=== PATIENT | male | born 1970 | race African-American/Black ===

== ENCOUNTER 2017-12-12 06:19 | Day surgery (SDC) | payer BC ==
[2017-12-11 13:24] LABS: Absolute Lymphocytes (CBC) 1.9 K/uL (0.7-4.9); Absolute Monocytes 0.5 K/uL (0.1-1.3); Absolute Neutrophil 2.2 K/uL (1.8-8.0); Basophils % 0.9 % (0-1.3); Eosinophils % 3.3 % (0-4.4); Hematocrit 43.6 % (39.6-49.0); Lymphocytes % 39.5 % (15.3-44.8); MCV 87.6 fL (80-100); MPV 8.4 fL (7.6-11.3); Monocytes % 11.3 % (3.3-12.3); RBC Red Blood Cell Count 4.97 M/uL (4.33-5.43)
[2017-12-11 13:41] LABS: Potassium 3.9 mEq/L (3.6-5.0)
--- NOTE | 2017-12-11 13:42 | RAD REPORT ---
EXAM DESCRIPTION: RAD - Chest Pa And Lat (2 Views) - 12/11/2017 1:17 pm CLINICAL HISTORY: Preop chest, pending cholecystectomy, smoking history COMPARISON: None. TECHNIQUE: PA and lateral views of the chest were obtained. FINDINGS: The lungs are clear of a focal mass, infiltrate or failure finding. Interstitial markings are mildly prominent with no comparison available. Mild chronic interstitial lung disease suspected. Heart size is normal and central vasculature is within normal limits. No pleural effusion or pneumo thorax seen. No acute bony finding noted. No aortic abnormality. IMPRESSION: Baseline study shows evidence for mild chronic interstitial lung disease. No failure, infiltrate or mass lesion identified.
[2017-12-11 13:47] LABS: Albumin 4.1 g/dL (3.2-5.5); Bilirubin Direct 0.1 mg/dL (0-0.2); Bilirubin Total 0.9 mg/dL (0.3-1.2); Protein, Total 7.6 g/dL (6.0-8.3)
--- NOTE | 2017-12-11 15:00 | EKG ---
Test Date: 2017-12-11 Test Time: 12:42:45 Research Recruiter: ASHELY MEASUREMENT RESULTS: Intervals: Rate: 69 [place]: 162 QRSD: 94 QT: 376 QTc: 402 [place]: P: 71 AZ: 162 QRS: -5 T: 63 INTERPRETIVE STATEMENTS: Normal sinus rhythm with sinus arrhythmia Early repolarization Normal ECG No previous ECG available for comparison Electronically Signed On 12-11-17 14:58:56 CDT by Juan Jose Hall
[2017-12-12] MEDS ORDERED: Ringers Lactate 1,000 ML IV ONE (06:58)
[2017-12-12] MEDS ORDERED: CIPROFLOXACIN 400mg IV 400 MG/200 ML BAG IV ONE (06:59)
[2017-12-12] MEDS ORDERED: BUPIVACAINE 0.5% Inj,MDV 50 mL VIAL ONE (07:01)
[2017-12-12] MEDS ORDERED: ROCURONIUM 50 MG/5 ML VIAL IV ONE (07:18)
[2017-12-12] MEDS ORDERED: PROPOFOL 200 MG/20 ML VIAL IV ONE (07:18)
[2017-12-12] MEDS ORDERED: MIDAZOLAM HCL 2 MG/2 ML INJ ONE ×2 (07:18→07:38)
[2017-12-12] MEDS ORDERED: FENTANYL CITR 100 MCG/2 ML ONE ×2 (07:18→07:46)
[2017-12-12] MEDS ORDERED: KETOROLAC 30 MG/ML INJ ONE (07:57)
[2017-12-12] MEDS ORDERED: GLYCOPYRROLATE 0.2 MG/ML SYR ONE ×2 (07:57→07:58)
[2017-12-12] MEDS ORDERED: ONDANSETRON 4 MG/2 ML VIAL ONE (07:58)
[2017-12-12] MEDS ORDERED: NEOSTIGMINE 1 MG/ML -5 ML SYRINGE ONE (07:59)
--- NOTE | 2017-12-12 08:52 | P.BOP ---
Preoperative diagnosis: symptomatic cholelithiasis Postoperative diagnosis: same Primary procedure: Laparoscopic cholecystectomy Ointment Mill Tender: YULISA ROMERO Estimated blood loss: <10cc Specimen: gb Findings: as above Anesthesia: General Complications: None Drain(s): Other Transferred to: Recovery Room Condition: Good
[2017-12-12] MEDS: MEPERIDINE HCL 50 MG/ML AMP ONE ×3 (09:00→09:14)
[2017-12-12] MEDS ORDERED: HYDROCODONE/APAP 5/325 MG TAB ONE (09:59)
--- NOTE | 2017-12-12 17:40 | OP ---
Date of Procedure: 12/12/2017 Surgeon: Ta Foley MD Drug Safety Assistant: CELESTINO Miller Preoperative Diagnosis: Symptomatic cholelithiasis. Postoperative Diagnosis: Symptomatic cholelithiasis. Procedure: Laparoscopic cholecystectomy. Estimated Blood Loss: Less than 10 cc. Specimen: Gallbladder. Anesthesia: General plus local. Indications: This is a case of a 47-year-old patient with above diagnosis. Fully explained the bene fits, alternatives, and risks of laparoscopic, possible open cholecystectomy, which include, but not limited to infection, bleeding, damage to adjacent structures, anesthesia complication, choledocholit hiasis, bile leak, pancreatitis, GA, and even . He also understands this may not relieve any sy mptoms. He might need more than one surgical intervention. He understood. Signed consent. Description Of Procedure: The patient was brought to the operating room, placed in supine position. Anesthesia was done without complication. Abdominal area was prepped and draped in a sterile fashio n. Marcaine 0.5% was injected for local anesthetic, followed by sharp incision of the skin in the pe riumbilical region. Incision was carried down to fascia, which was opened under direct vision. Elba toneum was encountered, opened under direct vision. Vicryl #1 placed inside the fascia. Charline troc ar was carefully introduced. No bleeding was obtained. I placed 3 more trocars, 5 mm each one of th em under direct visualization in the right upper quadrant. I put a grasper in the fundus of the gall bladder, another grasper in the infundibulum, and retracted gallbladder in the inferolateral fashion exposing the triangle of Calot obtaining critical view of safety. The cystic duct and cystic artery were clearly isolated circumferentially and a connection between those and the gallbladder was clearl y visualized. We proceeded to ligate those by using at least 3 clips proximal, 1 clip distal, and li gation in middle. Same was done with the cystic artery. No bile leak. No bleeding. The gallbladde r was removed from liver using Bovie cauterizer and removed from abdominal cavity using an EndoCatch through the umbilical incision. The area was inspected once again. No bile leak. No bleeding. At that moment, I proceeded to remove the trocars under direct vision. Deflated pneumoperitoneum. Clos ed the fascia with #1 Vicryl. Irrigated the subcutaneous tissue, closed that with 3-0 chromic, and t hen the skin in subcuticular fashion with 3-0 chromic and Steri-Strips on top. Sponge count and inst rument counts were correct. The patient tolerated the procedure well. The patient was sent to [facility] in stable condition. NIA/LINDA Voice ID: [id number] Report ID: [id number]
--- NOTE | 2017-12-12 17:40 | DS ---
Date of Discharge: 12/12/2017 Diagnosis: Symptomatic cholelithiasis with acute cholecystitis. Procedure: Laparoscopic cholecystectomy. Disposition: Home. Activity: As tolerated. No heavy lifting. Followup: Follow up in my office in 1 week. Call for appointment [phone]. Discharge Instructions: Keep area dry for 48 hours, then may shower. Keep Steri-Strips intact. Medications: Include Bactrim DS p.o. b.i.d. and Vicodin q.4 hours p.r.n. pain. The patient instructed not to use his normal Ultracet with his Vicodin at the same time. Not to use it. The patient understood. NIA/LINDA Voice ID: [id number] Report ID: [id number]
== END 2017-12-12 10:50 | disposition home or self-care (01) ==
LOC: OR 06:19
PROVIDERS: ATTEND Surgery
PROC: 0FT44ZZ Resection of Gallbladder, Percutaneous Endoscopic Approach (ICD-10-PCS; principal; 2017-12-12 07:30)
DX: K80.10 Calculus of gallbladder with chronic cholecystitis without obstruction (principal); I10 Essential (primary) hypertension; K21.9 Gastro-esophageal reflux disease without esophagitis; F17.210 Nicotine dependence, cigarettes, uncomplicated; Z88.0 Allergy status to penicillin
CPT/HCPCS: 36415; 71046; 80048; 80076; 82150; 83690; 85025; 88304; 93005; J0744; J2175; J2250; J2405; J2710; J3010

== ENCOUNTER 2020-01-04 12:34 | Emergency (ER) | payer BC, SELFPAY ==
[2020-01-04] MEDS ORDERED: HYDROCODONE/APAP 5/325 MG TAB ONE (14:09)
--- NOTE | 2020-01-04 14:12 | RAD REPORT ---
EXAM DESCRIPTION: RAD - Foot Left 3 View - 01/04/2020 1:47 pm CLINICAL HISTORY: Left Foot pain FINDINGS: A mildly displaced fracture involves the mid to distal fifth metatarsal. No dislocation
--- NOTE | 2020-01-04 14:28 | ER ---
Nurse's Notes [facility] Name: Hans Winters Age: 49 yrs Sex: Male : 1970 Arrival Date: 01/04/2020 Time: 12:37 Bed 14 Private MD: Diagnosis: Displaced fracture of fifth metatarsal bone, left foot Presentation: 01/03 13:17 Chief complaint: Patient states: Left lateral foot pain since Sunday night. States he ll1 stepped down the stairs the wrong way. Pain since. Coronavirus screen: Proceed with normal triage. Patient denies a cough. Patient denies shortness of breath or difficulty breathing. Patient denies measured and/or subjective temperature greater than 100.4F prior to today's visit. Patient denies travel on a cruise ship or to a country the [facility] currently lists as an affected area. Patient denies contact with known and/or suspected case of COVID-19. Ebola Screen: Patient denies travel to an Ebola-affected area in the 21 days before illness onset. Initial Sepsis Screen: Does the patient meet any 2 criteria? No. Patient's initial sepsis screen is negative. Risk Assessment: Do you want to hurt yourself or someone else? Patient reports no desire to harm self or others. Onset of symptoms was January 02, 2020. 13:17 Method Of Arrival: Ambulatory ll1 13:17 Acuity: NORMA 4 ll1 13:37 Initial Sepsis Screen: Does the patient have a suspected source of infection? No. ll1 Patient's initial sepsis screen is negative. Historical: - Allergies: 13:18 PENICILLINS; ll1 - PMHx: 13:18 Hypertension; ll1 - PSHx: 13:18 Cholecystectomy; ll1 - Immunization history:: Adult Immunizations up to date. - Social history:: Smoking status: Patient reports the use of cigarette tobacco products, smokes one-half pack cigarettes per day, Patient uses street drugs, marijuana. Screenin:36 Abuse screen: Denies threats or abuse. Nutritional screening: No deficits noted. ll1 Tuberculosis screening: No symptoms or risk factors identified. Fall Risk None identified. Total Crisostomo Fall Scale indicates No Risk (0-24 pts). Assessment: 13:36 General: Appears in no apparent distress. Behavior is calm, cooperative, appropriate ll1 for age. Pain: Complains of pain in l foot Quality of pain is described as aching, Pain began 2-3 days ago. Is intermittent. Neuro: No deficits noted. Cardiovascular: No deficits noted. Respiratory: No deficits noted. Musculoskeletal: Circulation, motion, and sensation intact. Capillary refill < 3 seconds, Tenderness present in left lateral foot Reports pain in left lateral foot. Injury Description: Bruise. Vital Signs: 13:17 BP 121 / 82; Pulse 69; Resp 17; Temp 98.5; Pulse Ox 96% ; Pain 8/10; ll1 ED Course: 12:37 Patient arrived in ED. as 13:15 Suzanne Andino, RN is Primary Nurse. ll1 13:17 Keren Davis FNP-C [facility]. snw 13:17 Maldonado Ring MD is Attending Physician. snw 13:18 Triage completed. ll1 13:18 Arm band placed on. ll1 13:37 Patient has correct armband on for positive identification. Bed in low position. Call ll1 light in reach. Side rails up X 1. 13:47 Foot Left 3 View XRAY In Process Unspecified. EDMS 14:19 Crutch training done. Orthoglass splint: Posterior short lleg splint applied on left jp3 leg. Patient maintains SpO2 saturation greater than 95% on room air. 14:26 Tha Betancur MD is Referral Physician. snw 14:50 No provider procedures requiring assistance completed. Patient did not have IV access ll1 during this emergency room visit. Administered Medications: 14:03 Drug: [place] 5 mg-325 mg 1 tabs Route: PO; ll1 14:51 Follow up: Response: No adverse reaction; Pain is decreased; RASS: Alert and Calm (0) ll1 Outcome: 14:27 Discharge ordered by . snw 14:49 Patient left the ED. ll1 14:50 Discharged to home ambulatory. ll1 14:50 Condition: stable 14:50 Discharge instructions given to patient, Instructed on discharge instructions, follow up and referral plans. medication usage, crutch walking, Demonstrated understanding of instructions, follow-up care, medications, crutch walking, splint care, Prescriptions given X 2. Signatures: Dispatcher [employer] EDMS Keren Davis FNP-C PLATE MOUNTER-Csnw Aarti Foley Jacob jp3 Suzanne Andino, RN RN ll1
--- NOTE | 2020-01-04 14:28 | EDPHYS ---
Physician Documentation [facility] Name: Hans Winters Age: 49 yrs Sex: Male : 1970 Arrival Date: 01/04/2020 Time: 12:37 Bed 14 Private MD: ED Physician Maldonado Ring HPI: 01/03 14:23 This 49 yrs old Black Male presents to ER via Ambulatory with complaints of Foot Pain. snw 14:23 The patient presents with decreased range of motion, an injury, pain, that is acute. snw The complaints affect the lateral aspect of left foot. Context: resulted from a mis-step, last of a series of stairs, the patient can partially bear weight, the patient is able to ambulate, with moderate difficulty, Problem is a result from a previous injury: No. Onset: The symptoms/episode began/occurred suddenly, 3 day(s) ago, and became persistent. Treatment prior to arrival includes: no previous treatment. Severity of symptoms: At their worst the symptoms were moderate. The patient has not experienced similar symptoms in the past. It is unknown whether or not the patient has recently seen a physician. Historical: - Allergies: 13:18 PENICILLINS; ll1 - PMHx: 13:18 Hypertension; ll1 - PSHx: 13:18 Cholecystectomy; ll1 - Immunization history:: Adult Immunizations up to date. - Social history:: Smoking status: Patient reports the use of cigarette tobacco products, smokes one-half pack cigarettes per day, Patient uses street drugs, marijuana. ROS: 14:23 Constitutional: Negative for fever, chills, and weight loss, Eyes: Negative for injury, snw pain, redness, and discharge, ENT: Negative for injury, pain, and discharge, Neck: Negative for injury, pain, and swelling, Cardiovascular: Negative for chest pain, palpitations, and edema, Respiratory: Negative for shortness of breath, cough, wheezing, and pleuritic chest pain, Abdomen/GI: Negative for abdominal pain, nausea, vomiting, diarrhea, and constipation, Back: Negative for injury and pain, : Negative for injury, bleeding, discharge, and swelling, Skin: Negative for injury, rash, and discoloration, Neuro: Negative for headache, weakness, numbness, tingling, and seizure, Psych: Negative for depression, anxiety, suicide ideation, homicidal ideation, and hallucinations. 14:23 MS/extremity: Positive for injury or acute deformity, decreased range of motion, ecchymosis, pain, swelling, of the lateral side of left foot. Exam: 14:19 Constitutional: This is a well developed, well nourished patient who is awake, alert, snw and in no acute distress. Head/Face: Normocephalic, atraumatic. Eyes: Pupils equal round and reactive to light, extra-ocular motions intact. Lids and lashes normal. Conjunctiva and sclera are non-icteric and not injected. Cornea within normal limits. Periorbital areas with no swelling, redness, or edema. ENT: Nares patent. No nasal discharge, no septal abnormalities noted. Tympanic membranes are normal and external auditory canals are clear. Oropharynx with no redness, swelling, or masses, exudates, or evidence of obstruction, uvula midline. Mucous membranes moist. Neck: Trachea midline, no thyromegaly or masses palpated, and no cervical lymphadenopathy. Supple, full range of motion without nuchal rigidity, or vertebral point tenderness. No Meningismus. Chest/axilla: Normal chest wall appearance and motion. Nontender with no deformity. No lesions are appreciated. Cardiovascular: Regular rate and rhythm with a normal S1 and S2. No gallops, murmurs, or rubs. Normal PMI, no JVD. No pulse deficits. Respiratory: Lungs have equal breath sounds bilaterally, clear to auscultation and percussion. No rales, rhonchi or wheezes noted. No increased work of breathing, no retractions or nasal flaring. Abdomen/GI: Soft, non-tender, with normal bowel sounds. No distension or tympany. No guarding or rebound. No evidence of tenderness throughout. Back: No spinal tenderness. No costovertebral tenderness. Full range of motion. Skin: Warm, dry with normal turgor. Normal color with no rashes, no lesions, and no evidence of cellulitis. Neuro: Awake and alert, GCS 15, oriented to person, place, time, and situation. Cranial nerves II-XII grossly intact. Motor strength 5/5 in all extremities. Sensory grossly intact. Cerebellar exam normal. Normal gait. Psych: Awake, alert, with orientation to person, place and time. Behavior, mood, and affect are within normal limits. 14:19 Musculoskeletal/extremity: Extremities: grossly normal except: noted in the lateral side of left foot: decreased ROM, ecchymosis, tenderness, ROM: limited active range of motion due to pain, Circulation is intact in all extremities. Sensation intact. Compartment Syndrome exam of affected extremity: is normal. Weight bearing: can bear weight with assistance only. Vital Signs: 13:17 BP 121 / 82; Pulse 69; Resp 17; Temp 98.5; Pulse Ox 96% ; Pain 8/10; ll1 MDM: 13:18 Patient medically screened. snw 14:31 Data reviewed: vital signs, nurses notes. Data interpreted: Pulse oximetry: on room air snw is 96 %. Interpretation: acceptable. Counseling: I had a detailed discussion with the patient and/or guardian regarding: the historical points, exam findings, and any diagnostic results supporting the discharge/admit diagnosis, the presence of at least one elevated blood pressure reading (>120/80) during this emergency department visit, lab results, the need for outpatient follow up, to return to the emergency department if symptoms worsen or persist or if there are any questions or concerns that arise at home. Special discussion: I have referred the patient to see his PCP for further evaluation of high blood pressure. Based on the history and exam findings, there is no indication for further emergent testing or inpatient evaluation. I discussed with the patient/guardian the need to see the orthopedic surgeon for further evaluation of the symptoms. I discussed with the patient/guardian the need to see the end user support specialist for further evaluation of the symptoms. I discussed with the patient/guardian the need to see the primary care provider for further evaluation of the symptoms. 01/03 13:18 Order name: Foot Left 3 View XRAY; Complete Time: 14:18 snw 01/03 13:47 Order name: Posterior Orthoglass Ankle Splint; Complete Time: 14:19 snw 01/03 14:18 Order name: Crutches; Complete Time: 14:19 snw 01/03 14:18 Order name: Crutch Training; Complete Time: 14:19 snw Administered Medications: 14:03 Drug: [place] 5 mg-325 mg 1 tabs Route: PO; ll1 14:51 Follow up: Response: No adverse reaction; Pain is decreased; RASS: Alert and Calm (0) ll1 Disposition: 19:13 Co-signature as Attending Physician, Maldonado Ring MD. ma2 Disposition: 01/04/20 14:27 Discharged to Home. Impression: Displaced fracture of fifth metatarsal bone, left foot. - Condition is Stable. - Discharge Instructions: Cast or Splint Care, Adult, Crutch Use, Metatarsal Fracture, RICE for Routine Care of Injuries. - Prescriptions for Mobic 7.5 mg Oral Tablet - take 1 tablet by ORAL route 2 times per day take with food; 20 tablet. orphenadrine citrate 100 mg Oral Tablet Sustained Release - take 1 tablet by ORAL route 2 times per day As needed; 20 tablet. - Work release form, Medication Reconciliation Form, Thank You Letter, Antibiotic Education, Prescription Opioid Use form. - Follow up: Tha Betancur MD; When: 2 - 3 days; Reason: Recheck today's complaints, Continuance of care. Signatures: Dispatcher [employer] EDMS Keren Davis, NICK-C REED REPAIRER-Csnw Maldonado Ring MD MD ma2 Suzanne Andino RN RN ll1 Corrections: (The following items were deleted from the chart) 14:49 14:27 01/04/2020 14:27 Discharged to Home. Impression: Displaced fracture of fifth ll1 metatarsal bone, left foot. Condition is Stable. Forms are Medication Reconciliation Form, Thank You Letter, Antibiotic Education, Prescription Opioid Use. Follow up: Tha Betancur; When: 2 - 3 days; Reason: Recheck today's complaints, Continuance of care. snw
[2020-01-04 15:00] VITALS: BP 121/82; TEMP 98.5; O2SAT 96
== END 2020-01-04 14:49 | disposition home or self-care (01) ==
LOC: ER 12:34
PROC: 2W3RX1Z Immobilization of Left Lower Leg using Splint (ICD-10-PCS; principal; 2020-01-04)
DX: S92.352A Displaced fracture of fifth metatarsal bone, left foot, initial encounter for closed fracture (principal); X58.XXXA Exposure to other specified factors, initial encounter; Y93.89 Activity, other specified; Y92.9 Unspecified place or not applicable; I10 Essential (primary) hypertension; Z88.0 Allergy status to penicillin; F17.210 Nicotine dependence, cigarettes, uncomplicated
CPT/HCPCS: 99284

== ENCOUNTER 2021-09-09 18:31 | Emergency (ER) | payer SELFPAY ==
--- OUTSIDE RECORDS SUMMARY | 2021-09-09 18:34 | XMS REPORT | Continuity of Care Document ---
:1970 Author Organization [facility] t Address [address] [place] [address] Care Team Providers Name Role Phone Wright Attending Clinician Unavailable Cherry CORTES, L Attending Clinician Heavenly BELTRAN Attending Clinician Unavailable Ruby NGUYEN S Attending Clinician Charles LINARES Attending Clinician Unavailable Doctor Unassigned, Name Attending Clinician Unavailable Problems This patient has no known problems. Allergies, Adverse Reactions, Alerts Allergy Allergy Status Severity Reaction(s) Onset Inactive Treating Comm ents Source Name Type Date Date Clinician Penicill Propensi Active Unknown - Uni vers in ty to See comments 01-07 ity of adverse 00:00: [place] reaction 00 Medical s Branch PENICILL DRUG Active Unknown-Cmnt Un [place] IN INGREDI 01-07 ity of 00:00: [place] 00 Medical Branch NO KNOWN Drug Active Univers ALLERGIE Class ity of S [facility] Social History Social Habit Start Date Stop Date Quantity Comments Source Sex Assigned At Uni versity of [facility] Exposure to SARS-CoV-2 Not sure Un [facility]ity of [place] (event) Medical [place] Smoking Status Start Date Stop Date Source Current every day smoker 2020-01-08 00:00:00 Uni versity of [place] [facility] Medications Ordered Filled Start Stop Current Ordering Indication Dosage Frequency Signature Comments Components Source Medication Medication Date Date Medication? Clinician (SIG) Name Name amlodipine 2020-0 Yes Take by Uni vers bes/olmesar 6-25 mouth. ity of [place] med 18:56: [place] (AMLODIPINE 25 Medical -OLMESARTAN Branch ORAL) amlodipine 2020-0 Yes Take by Uni vers bes/olmesar 6-25 mouth. ity of [place] 18:56: [place] (AMLODIPINE 25 Medical -OLMESARTAN Branch ORAL) amlodipine 2020-0 Yes Take by Uni vers bes/olmesar 6-25 mouth. ity of [place] [facility] 18:56: [place] (AMLODIPINE 25 Medical -OLMESARTAN Branch ORAL) amlodipine 2020-0 Yes Take by Uni vers bes/olmesar 6-25 mouth. ity of [place] [facility] 18:56: [place] (AMLODIPINE 25 Medical -OLMESARTAN Branch ORAL) amlodipine 2020-0 Yes Take by Uni vers bes/olmesar 6-25 mouth. ity of [place] 18:56: [place] (AMLODIPINE 25 Medical -OLMESARTAN Branch ORAL) amlodipine 2020-0 Yes Take by Uni vers bes/olmesar 6-25 mouth. ity of [place] 18:56: [place] (AMLODIPINE 25 Medical -OLMESARTAN Branch ORAL) amlodipine 2020-0 Yes Take by Uni vers bes/olmesar 6-25 mouth. ity of [place] 18:56: [place] (AMLODIPINE 25 Medical -OLMESARTAN Branch ORAL) amlodipine 2020-0 Yes Take by Uni vers bes/olmesar 6-25 mouth. ity of [place] 18:56: [place] (AMLODIPINE 25 Medical -OLMESARTAN Branch ORAL) acetaminoph 2020-0 Yes [id number] 1{tbl} Take 1 Univers en-codeine 6-25 tablet by ity of (TYLENOL-CO 00:00: mouth [place] DEINE #3) 00 every 4 Medical 300-30 mg (four) Branch tablet hours as needed for Pain (scale 4-6) or Pain (scale 7-10). acetaminoph 2020-0 Yes [id number] 1{tbl} Take 1 Univers en-codeine 6-25 tablet by ity of (TYLENOL-CO 00:00: mouth [place] DEINE #3) 00 every 4 Medical 300-30 mg (four) Branch tablet hours as needed for Pain (scale 4-6) or Pain (scale 7-10). acetaminoph 2020-0 Yes [id number] 1{tbl} Take 1 Univers en-codeine 6-25 tablet by ity of (TYLENOL-CO 00:00: mouth [place] DEINE #3) 00 every 4 Medical 300-30 mg (four) Branch tablet hours as needed for Pain (scale 4-6) or Pain (scale 7-10). acetaminoph 2020-0 Yes [id number] 1{tbl} Take 1 Univers en-codeine 6-25 tablet by ity of (TYLENOL-CO 00:00: mouth [place] DEINE #3) 00 every 4 Medical 300-30 mg (four) Branch tablet hours as needed for Pain (scale 4-6) or Pain (scale 7-10). acetaminoph 2020-0 Yes [id number] 1{tbl} Take 1 Univers en-codeine 6-25 tablet by ity of (TYLENOL-CO 00:00: mouth [place] DEINE #3) 00 every 4 Medical 300-30 mg (four) Branch tablet hours as needed for Pain (scale 4-6) or Pain (scale 7-10). acetaminoph 2020-0 Yes [id number] 1{tbl} Take 1 Univers en-codeine 6-25 tablet by ity of (TYLENOL-CO 00:00: mouth [place] DEINE #3) 00 every 4 Medical 300-30 mg (four) Branch tablet hours as needed for Pain (scale 4-6) or Pain (scale 7-10). acetaminoph 2020-0 Yes [id number] 1{tbl} Take 1 Univers en-codeine 6-25 tablet by ity of (TYLENOL-CO 00:00: mouth [place] DEINE #3) 00 every 4 Medical 300-30 mg (four) Branch tablet hours as needed for Pain (scale 4-6) or Pain (scale 7-10). acetaminoph 2020-0 Yes [id number] 1{tbl} Take 1 Univers en-codeine 6-25 tablet by ity of (TYLENOL-CO 00:00: mouth [place] DEINE #3) 00 every 4 Medical 300-30 mg (four) Branch tablet hours as needed for Pain (scale 4-6) or Pain (scale 7-10). Vital Signs Vital Name Observation Time Observation Value Comments Source Systolic blood 2020-02-11 19:25:00 121 mm[Hg[facility]astolic blood 2020-02-11 19:25:00 70 mm[Hg] Unive [facility] Respiratory rate 2020-02-11 19:25:00 18 /min Univ [facility] Body height 2020-02-11 19:25:00 185.4 cm [facility] Body weight 2020-02-11 19:25:00 95.255 kg [facility] BMI 2020-02-11 19:25:00 27.71 kg/m2 [facility] Diastolic blood 2020-01-08 18:54:00 75 mm[Hg] Unive [facility] Heart rate 2020-01-08 18:54:00 62 /min [facility] Body height 2020-01-08 18:54:00 185.4 cm [facility] Body weight 2020-01-08 18:54:00 95.255 kg [facility] BMI 2020-01-08 18:54:00 27.71 kg/m2 [facility] Systolic blood 2020-01-08 18:54:00 124 mm[Hg] [facility] Procedures Procedure Date / Time Performed Performing Clinician Sourc e XR FOOT 3+ VW LEFT 2020-02-11 18:51:10 Ashia Linares [facility] NOTICE OF PRIVACY 2020-02-11 18:23:30 Doctor Unassigned, No Univ [facility] PRACTICES [facility] CONSENT/REFUSAL FOR 2020-02-11 18:23:12 [facility] TREATMENT ASSIGNMENT OF BENEFITS 2020-02-11 18:22:58 Doctor Unassigned, No [facility] Encounters Start End Encounter Admission Attending Care Care Encounter Source Date/Time Date/Time Type Type Clinicians Facility Department ID 2021-08-10 Outpatient Kyle, STLMLC [facility] [id number] [facility] 14:00:31 Avnee [id number] [facility] 2021-08-10 Outpatient Wright, STLC [facility] [id number] [facility] 13:47:20 [place] [id number] [facility] 2021-08-10 Outpatient Wright, STLC [facility] [id number] 13:08:10 Avnee [id number] [facility] 2021-08-08 2021-08-08 ambulatory STLC [facility] [id number] [facility] 2021-04-01 2021-04-01 [facility] [id number] 2020-12-09 2020-12-09 [facility] [id number] 2020-02-11 2020-02-11 [facility] [id number] Univers 13:23:00 23:59:00 Encounter Ashia Soto Meally [id number] ity [facility] [id number] [facility] [id number] [facility] [address] [place] 2020-02-11 2020-02-11 [facility] [id number] Univers 14:45:00 14:45:00 [facility] [id number] [facility]11 2020-02-11 [facility] [id number] Univers 14:45:00 14:45:00 [facility] 2020-02-11 2020-02-11 Office [facility] [id number] Univers 14:24:20 14:39:20 Visit [facility] [id number] it y of [facility] [id number] [facility] [id number] [place] dical es 198 [facility] 2020-02-11 2020-02-11 [facility] [id number] Univers 00:00:00 00:00:00 ASHIA ity of [facility] 2020-02-11 2020-02-11 Telephone Cherry MIRANDY [id number] Univers 00:00:00 00:00:00 Ashia Soto [facility] [id number] it y of Surgical [id number] Bert as Specialti [phone] Me dical es 198 [facility] 2020-02-11 2020-02-11 Orders Doctor DARREL [id number] Univers 00:00:00 00:00:00 Only Unassigned, GIANNA [id number] ity of [facility] [id number] Bert as [id number] [address] 2020-02-11 2020-02-11 Letter Ruby [facility] [id number] Univers 00:00:00 00:00:00 (Out) Teresa [facility] [id number] it y of Surgical [id number] Bert as Specialti [id number] [place] dical es 198 [facility] 2020-01-08 2020-01-08 [facility] [id number] Univers 14:15:00 14:15:00 ASHIA [id number] max [facility] 2020-01-08 2020-01-08 Outpatient R CHERRY [facility] [id number] Univers 14:15:00 14:15:00 ASHIA santana [facility] 2020-01-08 2020-01-08 Office Teresa Beltran [facility] [id number] Univers 13:47:34 14:02:34 Visit Ashia Linares [employer] [id number] ity of Surgical [id number] Bert as Specialti [id number] [place] dical es 198 [facility] Results Test Description Test Time Test Comments Results Result Sour e Comments XR FOOT 3+ VW 2020-01-15 HISTORY: Fifth Univers ity of LEFT 9 metatarsal fracture. [facility] 18:54:37 FINDINGS: AP, Branch lateral, oblique views of left foot showed comminuted andslightly displaced fractures of distal third of the shaft of the fifthmetatarsal bone with soft tissue swelling of the foot.Note made of first metatarsal is lateral some hallux valgus deformity withmild hypertrophy of the medial eminence of first metatarsal head. Note alsomade of a small 3 mm heel spur. CONCLUSIONS: Comminuted and slightly displaced fractures in the distalshaft of left fifth metatarsal bone. [facility], Radiant Results Inft User - 02/11/2020 1:55 PM CDTHISTORY: Fifth metatarsal fracture.FINDINGS: AP, lateral, oblique views of left foot showed comminuted andslightly displaced fractures of distal third of the shaft of the fifthmetatarsal bone with soft tissue swelling of the foot.Note made of first metatarsal is lateral some hallux valgus deformity withmild hypertrophy of the medial eminence of first metatarsal head. Note alsomade of a small 3 mm heel spur.CONCLUSIONS: Comminuted and slightly displaced fractures in the distalshaft of left fifth metatarsal bone.
--- NOTE | 2021-09-09 18:53 | EDPHYS ---
Physician Documentation [facility] Name: Hans Winters Age: 51 yrs Sex: Male : 1970 Arrival Date: 09/09/2021 Time: 18:34 Bed 24 Private MD: ED Physician Maldonado Ring HPI: 09/09 18:49 This 51 yrs old Black Male presents to ER via Ambulatory with complaints of Mouth kb Problem. 18:49 The patient presents with pain. The problem is located in the upper right second molar kb and upper right first molar. Onset: The symptoms/episode began/occurred over a year ago, but became constant 1 month ago and now slight swelling. Duration: The symptoms are intermittent. Modifying factors: The symptoms are alleviated by nothing, the symptoms are aggravated by nothing. Associated signs and symptoms: Pertinent positives: pain, swelling, Pertinent negatives: anorexia, chills, dysphagia, fever, inability to eat, nausea, redness in area, vomiting. Severity of symptoms: At their worst the symptoms were moderate, in the emergency department the symptoms are unchanged. The patient has not experienced similar symptoms in the past. The patient has not recently seen a physician. Historical: - Allergies: 18:41 PENICILLINS; ab2 - Home Meds: 18:41 amlodipine 5 mg tab 1 tab once daily [Active]; ab2 - PMHx: 18:41 Hypertension; ab2 - PSHx: 18:41 Cholecystectomy; ab2 - Immunization history:: Adult Immunizations up to date. - Social history:: Smoking status: Patient reports the use of cigarette tobacco products, smokes one pack cigarettes per day. ROS: 18:48 Constitutional: Negative for fever, chills, and weight loss. kb 18:48 ENT: Positive for dental pain. 18:48 All other systems are negative. Exam: 18:48 Constitutional: This is a well developed, well nourished patient who is awake, alert, kb and in no acute distress. Head/Face: Normocephalic, atraumatic. ENT: Moist Mucous membranes Cardiovascular: Regular rate and rhythm with a normal S1 and S2. No gallops, murmurs, or rubs. No pulse deficits. Respiratory: Respirations even and unlabored. No increased work of breathing. Talking in full sentences Skin: Warm, dry with normal turgor. Normal color. MS/ Extremity: Pulses equal, no cyanosis. Neurovascular intact. Full, normal range of motion. Neuro: Awake and alert, GCS 15, oriented to person, place, time, and situation. Moves all extremities. Normal gait. Psych: Awake, alert, with orientation to person, place and time. Behavior, mood, and affect are within normal limits. Vital Signs: 18:37 BP 126 / 80; Pulse 63; Resp 18; Temp 98.1(TE); Pulse Ox 100% ; Weight 96.16 kg; Height ab2 6 ft. 1 in. (185.42 cm); Pain 8/10; 18:37 Body Mass Index 27.97 (96.16 kg, 185.42 cm) ab2 MDM: 18:44 Patient medically screened. kb 18:48 Data reviewed: vital signs, nurses notes. Data interpreted: Pulse oximetry: on room air kb is 100 %. Interpretation: normal. Counseling: I had a detailed discussion with the patient and/or guardian regarding: the historical points, exam findings, and any diagnostic results supporting the discharge/admit diagnosis, the need for outpatient follow up, a dentist, to return to the emergency department if symptoms worsen or persist or if there are any questions or concerns that arise at home. Administered Medications: 19:00 Drug: Ketorolac 30 mg Route: IM; Site: right deltoid; lr4 19:07 Follow up: Response: No adverse reaction lr4 19:06 Drug: Clindamycin 300 mg Route: PO; lr4 19:07 Follow up: Response: No adverse reaction lr4 Disposition Summary: 09/09/21 18:52 Discharge Ordered Location: Home kb Condition: Stable kb Diagnosis - Other specified disorders of teeth and supporting structures kb Followup: kb - With: Emergency Department - When: As needed - Reason: Worsening of condition Followup: kb - With: Private Physician - When: 2 - 3 days - Reason: Recheck today's complaints, Continuance of care, Re-evaluation by your physician Discharge Instructions: - Discharge Summary Sheet kb - Dental Pain, [id number] kb - Dental Abscess, [id number] kb Forms: - Medication Reconciliation Form kb - Thank You Letter kb - Antibiotic Education kb - Prescription Opioid Use kb Prescriptions: - Clindamycin HCl 150 mg Oral Capsule - take 1 capsule by ORAL route every 6 hours for 10 days; 40 capsule; Refills: 0, kb Product Selection Permitted - Diclofenac Sodium 75 mg Oral tablet,delayed release (DR/EC) - take 1 tablet by ORAL route 2 times per day As needed; 30 tablet; Refills: 0, kb Product Selection Permitted Signatures: Debra Quijano, [facility] OPERATOR-Ulices Bhatt ab2 Lora Ma, RN RN lr4
--- NOTE | 2021-09-09 18:53 | ER ---
Nurse's Notes [facility] Name: Hans Winters Age: 51 yrs Sex: Male : 1970 Arrival Date: 09/09/2021 Time: 18:34 Bed 24 Private MD: Diagnosis: Other specified disorders of teeth and supporting structures Presentation: 09/09 18:37 Chief complaint: Patient states: "I've got pain and swelling in my teeth that's been ab2 going on for about a year, but today the pain is worse." Pt also c/o a sore throat and headache. Coronavirus screen: Vaccine status: Patient reports being unvaccinated. Client denies travel out of the [place] in the last 14 days. At this time, the client does not indicate any symptoms associated with coronavirus-19. Ebola Screen: Patient negative for fever greater than or equal to 101.5 degrees Fahrenheit, and additional compatible Ebola Virus Disease symptoms Patient denies exposure to infectious person. Patient denies travel to an Ebola-affected area in the 21 days before illness onset. No symptoms or risks identified at this time. Initial Sepsis Screen: Does the patient meet any 2 criteria? No. Patient's initial sepsis screen is negative. Does the patient have a suspected source of infection? No. Patient's initial sepsis screen is negative. Risk Assessment: Do you want to hurt yourself or someone else? Patient reports no desire to harm self or others. Onset of symptoms is unknown. 18:37 Method Of Arrival: Ambulatory ab2 18:37 Acuity: NORMA 4 ab2 Triage Assessment: 18:41 General: Appears in no apparent distress. comfortable, Behavior is calm, cooperative, ab2 appropriate for age. Pain: Complains of pain in mouth Pain currently is 8 out of 10 on a pain scale. Historical: - Allergies: 18:41 PENICILLINS; ab2 - Home Meds: 18:41 amlodipine 5 mg tab 1 tab once daily [Active]; ab2 - PMHx: 18:41 Hypertension; ab2 - PSHx: 18:41 Cholecystectomy; ab2 - Immunization history:: Adult Immunizations up to date. - Social history:: Smoking status: Patient reports the use of cigarette tobacco products, smokes one pack cigarettes per day. Screenin:48 Abuse screen: Denies threats or abuse. Nutritional screening: No deficits noted. lr4 Tuberculosis screening: No symptoms or risk factors identified. Fall Risk None identified. Assessment: 18:50 General: Appears in no apparent distress. comfortable, Behavior is calm, cooperative. lr4 Pain: Complains of pain in mouth Pain currently is 10 out of 10 on a pain scale. Neuro: No deficits noted. Cardiovascular: No deficits noted. Respiratory: No deficits noted. EENT: Reports pain in mouth. Vital Signs: 18:37 BP 126 / 80; Pulse 63; Resp 18; Temp 98.1(TE); Pulse Ox 100% ; Weight 96.16 kg; Height ab2 6 ft. 1 in. (185.42 cm); Pain 8/10; 18:37 Body Mass Index 27.97 (96.16 kg, 185.42 cm) ab2 ED Course: 18:34 Patient arrived in ED. mr 18:41 Triage completed. ab2 18:42 Arm band placed on right wrist. ab2 18:44 Debra Quijano FNP-C is [facility]. kb 18:44 Maldonado Ring MD is Attending Physician. kb 18:47 Lora Ma RN is Primary Nurse. lr4 18:48 Patient has correct armband on for positive identification. Bed in low position. Call lr4 light in reach. Side rails up X 1. 18:49 No provider procedures requiring assistance completed. lr4 19:08 Patient did not have IV access during this emergency room visit. lr4 Administered Medications: 19:00 Drug: Ketorolac 30 mg Route: IM; Site: right deltoid; lr4 19:07 Follow up: Response: No adverse reaction lr4 19:06 Drug: Clindamycin 300 mg Route: PO; lr4 19:07 Follow up: Response: No adverse reaction lr4 Outcome: 18:49 Condition: stable lr4 18:52 Discharge ordered by . kb 19:07 Discharged to home ambulatory. lr4 19:08 Discharge instructions given to patient. lr4 19:08 Patient left the ED. lr4 Signatures: Debra Quijano FNP-C FNP-Vidal Adore Solorzano Alexis ab2 Lora Ma, KIRSTEN RN lr4
[2021-09-09] MEDS ORDERED: KETOROLAC 30 MG/ML INJ ONE (19:01)
[2021-09-09 20:14] VITALS: BP 126/80; TEMP 98.1; O2SAT 100
== END 2021-09-09 19:08 | disposition home or self-care (01) ==
LOC: ER 18:31
DX: K08.89 Other specified disorders of teeth and supporting structures (principal); I10 Essential (primary) hypertension; F17.210 Nicotine dependence, cigarettes, uncomplicated; Z88.0 Allergy status to penicillin
CPT/HCPCS: 96372; 99283

== ENCOUNTER 2021-09-20 18:54 | Emergency (ER) | payer SELFPAY ==
--- OUTSIDE RECORDS SUMMARY | 2021-09-20 18:58 | XMS REPORT | Continuity of Care Document ---
:1970 Author Organization [facility] t Address [address] [place] [address] Care Team Providers Name Role Phone Wright [...] DRUG Active Unknown-Cmnt Un beverley IN INGREDI 6 ity of 00:00: [place] 00 Medical Branch NO KNOWN Drug Active Univers ALLERGIE Class ity of S [facility] Social History Social Habit Start Date Stop Date Quantity Comments Source Sex Assigned At Uni versity of [facility] Exposure to SARS-CoV-2 Not sure Un [facility] [place] (event) Medical [place] Smoking Status Start Date Stop Date Source Current every day smoker 2020-01-08 00:00:00 Uni [facility] [place] [facility] Medications Ordered Filled Start Stop Current Ordering Indication Dosage Frequency Signature Comments Components Source Medication Medication Date Date Medication? Clinician (SIG) Name Name amlodipine 2020-0 Yes Take by Uni vers bes/olmesar 6-25 mouth. ity of [place] med 18:56: [place] (AMLODIPINE 25 Medical -OLMESARTAN Branch ORAL) amlodipine 2020-0 Yes Take by Uni vers bes/olmesar 6-25 mouth. ity of [place] 18:56: [place] (AMLODIPINE 25 Medical -OLMESARTAN Branch ORAL) amlodipine 2020-0 Yes Take by Uni vers bes/olmesar 6-25 mouth. ity of [place] 18:56: [place] (AMLODIPINE 25 Medical -OLMESARTAN Branch ORAL) amlodipine 2020-0 Yes Take by Uni vers bes/olmesar 6-25 mouth. ity of [place] 18:56: [place] (AMLODIPINE 25 Medical -OLMESARTAN Branch ORAL) amlodipine 2020-0 Yes Take by Uni vers bes/olmesar 6-25 mouth. ity of [place] 18:56: [place] (AMLODIPINE 25 Medical -OLMESARTAN Branch ORAL) amlodipine 2020-0 Yes Take by Uni vers bes/olmesar 6-25 mouth. ity of [place] 18:56: [place] (AMLODIPINE 25 Medical -OLMESARTAN Branch ORAL) amlodipine 2020-0 Yes Take by Uni vers bes/olmesar 6-25 mouth. ity of [place] 18:56: [place] (AMLODIPINE 25 Medical -OLMESARTAN Branch ORAL) amlodipine 2020-0 Yes Take by Uni vers bes/olmesar 6-25 mouth. ity of [place] 18:56: [place] (AMLODIPINE 25 Medical -OLMESARTAN Branch ORAL) acetaminoph 2020-0 Yes [id number] 1{tbl} Take 1 Univers en-codeine 6-25 tablet by ity of (TYLENOL-CO 00:00: mouth [place] DEINE #3) 00 every 4 Medical 300-30 mg (four) Branch tablet hours as needed for Pain (scale 4-6) or Pain (scale 7-10). acetaminoph 2020-0 Yes [id number] 1{tbl} Take 1 Univers en-codeine 6-25 tablet by ity of (TYLENOL-CO 00:00: mouth [place] DEINE #3) 00 every 4 Medical 300-30 mg (four) Branch tablet hours as needed for Pain (scale 4-6) or Pain (scale 7-10). acetaminoph 2020-0 Yes [id number] 1{tbl} Take 1 Univers en-codeine 6-25 tablet by ity of (TYLENOL-CO 00:00: mouth [place] DEINE #3) 00 every 4 Medical 300-30 mg (four) Branch tablet hours as needed for Pain (scale 4-6) or Pain (scale 7-10). acetaminoph 2020-0 Yes [id number] 1{tbl} Take 1 Univers en-codeine 6-25 tablet by ity of (TYLENOL-CO 00:00: mouth [place] DEINE #3) 00 every 4 Medical 300-30 mg (four) Branch tablet hours as needed for Pain (scale 4-6) or Pain (scale 7-10). acetaminoph 2020-0 Yes [id number] 1{tbl} Take 1 Univers en-codeine 6-25 tablet by ity of (TYLENOL-CO 00:00: mouth [place] DEINE #3) 00 every 4 Medical 300-30 mg (four) Branch tablet hours as needed for Pain (scale 4-6) or Pain (scale 7-10). acetaminoph 2020-0 Yes [id number] 1{tbl} Take 1 Univers en-codeine 6-25 tablet by ity of (TYLENOL-CO 00:00: mouth [place] DEINE #3) 00 every 4 Medical 300-30 mg (four) Branch tablet hours as needed for Pain (scale 4-6) or Pain (scale 7-10). acetaminoph 2020-0 Yes [id number] 1{tbl} Take 1 Univers en-codeine 6-25 tablet by ity of (TYLENOL-CO 00:00: mouth [place] DEINE #3) 00 every 4 Medical 300-30 mg (four) Branch tablet hours as needed for Pain (scale 4-6) or Pain (scale 7-10). acetaminoph 2020-0 Yes [id number] 1{tbl} Take 1 Univers en-codeine 6-25 tablet by ity of (TYLENOL-CO 00:00: mouth [place] DEINE #3) 00 every 4 Medical 300-30 mg (four) Branch tablet hours as needed for Pain (scale 4-6) or Pain (scale 7-10). Vital Signs Vital Name Observation Time Observation Value Comments Source Systolic blood 2020-02-11 19:25:00 121 mm[facility]Hg[facility] 2020-02-11 19:25:00 70 mm[Hg] Unive [facility] Respiratory rate 2020-02-11 19:25:00 18 /min Univ [facility] Body height 2020-02-11 19:25:00 185.4 cm [facility] Body weight 2020-02-11 19:25:00 95.255 kg [facility] BMI 2020-02-11 19:25:00 27.71 kg/m2 [facility] Diastolic blood 2020-01-08 18:54:00 75 mm[Hg] Unive [facility] Heart rate 2020-01-08 18:54:00 62 /min [facility] Body height 2020-01-08 18:54:00 185.4 cm [facility] Body weight 2020-01-08 18:54:00 95.255 kg [facility] BMI 2020-01-08 18:54:00 27.71 kg/m2 [facility] Systolic blood 2020-01-08 18:54:00 124 mm[Hg] [facility] Procedures Procedure Date / Time Performed Performing Clinician Sourc e XR FOOT 3+ VW LEFT 2020-02-11 18:51:[address] [facility] NOTICE OF PRIVACY 2020-02-11 18:23:30 Doctor Unassigned, No Univ [facility] PRACTICES [facility] Medical Branch CONSENT/REFUSAL FOR 2020-02-11 18:23:12 [facility], [facility] Medical Branch TREATMENT ASSIGNMENT OF BENEFITS 2020-02-11 18:22:58 Doctor Unassigned, No [facility] Branch Encounters Start End Encounter Admission Attending Care Care Encounter Source Date/Time Date/Time Type Type Clinicians Facility Department ID 2021-08-10 Out[facility] [id number] [facility] 14:00:31 Avnee [id number] [facility] 2021-08-10 Out[facility] Wright[facility] [id number] 13[facility]47:20 [place]nee [id number] [facility] 2021-08-10 Out[facility] Wright[facility] [id number] [facility] 13:08:10 Avnee [id number] [facility] 2021-08-08 2021-08-08 ambulatory [facility] [id number] [facility] 2021-04-01 2021-04-01 [facility] [id number] [facility] 2020-12-09 2020-12-09 [id number] 2020-02-11 2020-02-11 [facility] [id number] Univers 13:23:00 23:59:00 Encounter Ashia Soto [place] [id number] ity [facility] [id number] [facility] [id number] [facility] [address] [place] 2020-02-11 2020-02-11 [facility] [id number] Univers 14:45:00 14:45:00 [facility] [id number] [facility]-11 2020-02-11 [facility] [id number] Univers 14:45:00 14:45:00 [facility] 2020-02-11 2020-02-11 [facility] [id number] Univers 14:24:20 14:39:20 Visit [facility] [id number] it y of [facility] [id number] [facility] [id number] Mi dical es 198 [facility] 2020-02-11 2020-02-11 [facility] [id number] Univers 00:00:00 00:00:00 ASHIA ity of [facility] 2020-02-11 2020-02-11 Telephone Cherry RIRANDY [id number] Univers 00:00:00 00:00:00 Ashia Soto [facility] [id number] it y of Surgical [id number] Bert as Specialti [id number] Me dical es 198 [facility] 2020-02-11 2020-02-11 Orders Doctor DARREL [id number] Univers 00:00:00 00:00:00 Only Unassigned, GIANNA [id number] ity of [facility] [id number] Bert as [id number] [address] 2020-02-11 2020-02-11 Letter Ruby [facility] [id number] Univers 00:00:00 00:00:00 (Out) Teresa [facility] [id number] it y of Surgical [id number] Bert as Specialti [id number] Mi dical es 198 [facility] 2020-01-08 2020-01-08 [facility] [id number] Univers 14:15:00 14:15:00 ASHIA [id number] [facility] 2020-01-08 2020-01-08 Outpatient R CHERRY [facility] [id number] Univers 14:15:00 14:15:00 ASHIA santana [facility] 2020-01-08 2020-01-08 Office Teresa Beltran [facility] [id number] Univers 13:47:34 14:02:34 Visit Ashia Linares [facility] [id number] ity of Surgical [id number] Bert as Specialti [phone] Mi dical es 198 [facility] Results Test Description Test Time Test Comments [...] the distalshaft of left fifth metatarsal bone. [facility], Radiant Results Inft User - 02/11/2020 1:55 [...]
[2021-09-20] MEDS ORDERED: IBUPROFEN 400 MG TAB ONE (19:41)
[2021-09-20] MEDS ORDERED: ACETAMINOPHEN 500 MG TAB ONE (19:41)
--- NOTE | 2021-09-20 20:38 | RAD REPORT ---
EXAM DESCRIPTION: RAD - Foot Right 3 View - 09/20/2021 8:21 pm CLINICAL HISTORY: injury;Pain COMPARISON: No comparisons FINDINGS: No fracture, dislocation or periosteal reaction. The contour deformity of the fifth proxim al phalanx is believed be remodeling from remote fracture. Correlation is needed for any point tender ness involving the fifth proximal phalanx. Minimal degenerative change at the first MTP joint. Patien t has a minimal plantar spur. No air or foreign body in the soft tissues. IMPRESSION: No acute fracture confirmed. No acute bone or joint finding identified.
--- NOTE | 2021-09-20 20:51 | EDPHYS ---
Physician Documentation [facility] Name: Hans Winters Age: 51 yrs Sex: Male : 1970 Arrival Date: 09/20/2021 Time: 18:57 Bed 9 Private MD: ED Physician Joe Franklin HPI: 09/20 19:30 This 51 yrs old Black Male presents to ER via Ambulatory with complaints of Foot Pain - cp right. 19:30 The patient presents with an injury, pain, that is acute. The complaints affect the cp lateral aspect of right foot. Context: resulted from a mis-step, while walking, stepped in hole, with use of crutches. Onset: The symptoms/episode began/occurred today, while at work. Treatment prior to arrival includes: no previous treatment. Historical: - Allergies: 19:03 PENICILLINS; al4 - Home Meds: 19:10 amlodipine oral [Active]; al4 - PMHx: 19:03 Hypertension; al4 - PSHx: 19:03 Cholecystectomy; al4 - Immunization history:: Adult Immunizations up to date. - Social history:: Smoking status: Patient reports the use of cigarette tobacco products, smokes one pack cigarettes per day. ROS: 19:35 Constitutional: Negative for body aches, chills, fever. cp 20:45 Neck: Negative for pain with movement, pain at rest. cp 20:45 Back: Negative for pain at rest, pain with movement. 20:45 MS/extremity: Positive for pain, swelling, tenderness, of the lateral aspect of right foot. 20:45 Neuro: Negative for numbness, weakness. 20:45 All other systems are negative. Exam: 19:40 Constitutional: The patient appears in no acute distress, alert, awake, non-toxic, well cp developed, well nourished. 19:40 Head/Face: Normocephalic, atraumatic. cp 19:40 Cardiovascular: Rate: normal. 19:40 Respiratory: the patient does not display signs of respiratory distress, Respirations: normal, no use of accessory muscles, no retractions. 19:40 Musculoskeletal/extremity: Extremities: grossly normal except: noted in the lateral aspect of right foot: pain, swelling, tenderness, Pulses: noted to be 2+ in the right dorsalis pedis artery, Sensation intact. Achilles tendon palpated and intact. No pain to palpation noted medial and lateral malleolus of right ankle. 19:40 Skin: no rash and/or cellulitis noted of right foot. Vital Signs: 19:03 BP 120 / 85; Pulse 68; Resp 18 S; Temp 98.4; Pulse Ox 98% on R/A; Weight 97.52 kg; al4 Height 6 ft. 1 in. (185.42 cm); Pain 8/10; 21:00 BP 118 / 60; Pulse 65; Resp 16; Pulse Ox 100% on R/A; Pain 7/10; st1 19:03 Body Mass Index 28.37 (97.52 kg, 185.42 cm) al4 MDM: 19:19 Patient medically screened. cp 19:45 Differential diagnosis: dislocation, closed fracture, sprain. cp 20:12 Test interpretation: by ED physician or midlevel provider: xrays of right foot negative cp for fracture. 20:50 Data reviewed: vital signs, nurses notes, radiologic studies, plain films. cp 20:50 Counseling: I had a detailed discussion with the patient and/or guardian regarding: the cp historical points, exam findings, and any diagnostic results supporting the discharge/admit diagnosis, radiology results, to return to the emergency department if symptoms worsen or persist or if there are any questions or concerns that arise at home. Response to treatment: the patient's symptoms have markedly improved after treatment, Pain improved with meds. Will discharge to home for continued monitoring. 09/20 19:27 Order name: XRAY Foot RIGHT 3 View; Complete Time: 20:43 cp 09/20 20:44 Interpretation: Report reviewed. cp 09/20 20:44 Order name: Post-op shoe; Complete Time: 20:56 cp Administered Medications: 19:41 Drug: Ibuprofen 800 mg Route: PO; st1 19:41 Drug: Tylenol 1000 mg Route: PO; st1 Disposition Summary: 09/20/21 20:50 Discharge Ordered Location: Home cp Problem: new cp Symptoms: have improved cp Condition: Stable cp Diagnosis - Other sprain of right foot cp Followup: cp - With: Saran Herrera MD - When: 2 - 3 days - Reason: Worsening of condition Discharge Instructions: - Discharge Summary Sheet cp - Foot Sprain cp - RICE Therapy for Routine Care of Injuries cp - Form - Excuse from Work, School, or Physical Activity cp Forms: - Medication Reconciliation Form cp - Thank You Letter cp - Antibiotic Education cp - Prescription Opioid Use cp Prescriptions: - Diclofenac Sodium 75 mg Oral tablet,delayed release (DR/EC) - take 1 tablet by ORAL route 2 times per day; 20 tablet; Refills: 0, Product cp Selection Permitted Signatures: Dispatcher [employer] EDMS Hammad Bautista PA PA cp Ledbetter, Alexis al4 Jessie Gamez RN RN st1 Corrections: (The following items were deleted from the chart) 19:11 19:03 Home Meds: amlodipine 5 mg tab 1 tab once daily; al4 al4 20:46 20:45 Constitutional: Negative for body aches, chills, fever, cp cp
--- NOTE | 2021-09-20 20:51 | ER ---
Nurse's Notes [facility] Name: Hans Winters Age: 51 yrs Sex: Male : 1970 Arrival Date: 09/20/2021 Time: 18:57 Bed 9 Private MD: Diagnosis: Other sprain of right foot Presentation: 09/20 19:02 Chief complaint: Patient states: patient reports stepping in a hole and hurting right al4 foot. hx of breaking foot in the past. patient arrived with crutches. Coronavirus screen: Vaccine status: Patient reports being unvaccinated. Ebola Screen: No symptoms or risks identified at this time. Risk Assessment: Do you want to hurt yourself or someone else? Patient reports no desire to harm self or others. Onset of symptoms was September 20, 2021. 19:02 Method Of Arrival: Ambulatory al4 19:02 Acuity: NORMA 4 al4 19:03 Initial Sepsis Screen:. Initial Sepsis Screen: Does the patient meet any 2 criteria? al4 No. Patient's initial sepsis screen is negative. Does the patient have a suspected source of infection? No. Patient's initial sepsis screen is negative. Triage Assessment: 19:03 General: Appears in no apparent distress. uncomfortable, Behavior is calm, cooperative. al4 Pain: Complains of pain in right foot Pain currently is 8 out of 10 on a pain scale. Neuro: Level of Consciousness is awake, alert, obeys commands, Oriented to person, place, time, situation. Cardiovascular: Capillary refill < 3 seconds Patient's skin is warm and dry. Respiratory: Airway is patent Respiratory effort is unlabored, Respiratory pattern is regular. Musculoskeletal: Range of motion: intact in all extremities. Historical: - Allergies: 19:03 PENICILLINS; al4 - Home Meds: 19:10 amlodipine oral [Active]; al4 - PMHx: 19:03 Hypertension; al4 - PSHx: 19:03 Cholecystectomy; al4 - Immunization history:: Adult Immunizations up to date. - Social history:: Smoking status: Patient reports the use of cigarette tobacco products, smokes one pack cigarettes per day. Screenin:34 Abuse screen: Denies threats or abuse. Nutritional screening: No deficits noted. st1 Tuberculosis screening: No symptoms or risk factors identified. Fall Risk None identified. No fall in past 12 months (0 pts). No secondary diagnosis (0 pts). No IV (0 pts). Ambulatory Aid- Crutches/Cane/Walker (15 pts). Gait- Impaired (20 pts.). Mental Status- Oriented to own ability (0 pts). Total Crisostomo Fall Scale indicates Low Risk Score (25-44 pts). Fall prevention measures have been instituted. Placed close to Nursing Station Frequent Obs/Assesments occuring As available Patient and Family Educated on Fall Prevention Program and strategies. Assessment: 19:34 Reassessment: Patient appears in no apparent distress at this time. Patient and/or st1 family updated on plan of care and expected duration. Pain level reassessed. Patient is alert, oriented x 3, equal unlabored respirations, skin warm/dry/pink. General: Appears in no apparent distress. uncomfortable, slender, well groomed, Behavior is calm, cooperative. Vital Signs: 19:03 BP 120 / 85; Pulse 68; Resp 18 S; Temp 98.4; Pulse Ox 98% on R/A; Weight 97.52 kg; al4 Height 6 ft. 1 in. (185.42 cm); Pain 8/10; 21:00 BP 118 / 60; Pulse 65; Resp 16; Pulse Ox 100% on R/A; Pain 7/10; st1 19:03 Body Mass Index 28.37 (97.52 kg, 185.42 cm) al4 ED Course: 18:57 Patient arrived in ED. am2 19:03 Triage completed. al4 19:03 Arm band placed on right wrist. al4 19:10 Hammad Bautista PA is PHCP. cp 19:10 Joe Franklin MD is Attending Physician. cp 19:27 Jessie Gamez, KIRSTEN is Primary Nurse. st1 20:21 XRAY Foot RIGHT 3 View In Process Unspecified. EDMS 20:49 Saran Herrera MD is Referral Physician. cp 21:00 No provider procedures requiring assistance completed. st1 21:01 Patient has correct armband on for positive identification. st1 21:01 Kirk wrap to right ankle Ortho shoe applied to right foot. st1 21:02 Patient did not have IV access during this emergency room visit. st1 Administered Medications: 19:41 Drug: Ibuprofen 800 mg Route: PO; st1 19:41 Drug: Tylenol 1000 mg Route: PO; st1 Outcome: 20:50 Discharge ordered by . paige 21:01 Discharged to home ambulatory. st1 21:01 Condition: good 21:01 Discharge instructions given to patient, Instructed on discharge instructions, follow up and referral plans. no drinking with medication, medication usage, Demonstrated understanding of instructions, follow-up care, medications. 21:02 Patient left the ED. st1 Signatures: Dispatcher [employer] EDMS Hammad Bautista PA PA cp Moreno, Amanda am2 Ledbetter, Alexis al4 Jessie Gamez RN RN st1 Corrections: (The following items were deleted from the chart) 19:06 19:02 Initial Sepsis Screen: Does the patient meet any 2 criteria? al4 al4 19:10 19:02 Chief complaint: Patient states: patient reports stepping in a hole and hurting al4 right foot. hx of breaking foot in the past al4 19:11 19:03 Home Meds: amlodipine 5 mg tab 1 tab once daily; al4 al4
[2021-09-20 21:26] VITALS: TEMP 98.4
[2021-09-20 21:28] VITALS: BP 118/60; O2SAT 100
== END 2021-09-20 21:02 | disposition home or self-care (01) ==
LOC: ER 18:54
DX: S93.691A Other sprain of right foot, initial encounter (principal); F17.210 Nicotine dependence, cigarettes, uncomplicated; I10 Essential (primary) hypertension; Z88.0 Allergy status to penicillin
CPT/HCPCS: 99283